=== PATIENT | male | born 1965 | race Caucasian/White ===

== ENCOUNTER → 2016-09-13 | Outpatient (CLI) | payer OTHER ==
[~2016-09-13] MED LIST: ALBUAER2 PO; ANT25 PO; ASPI81TA28 PO; BENZ1CAP90 PO; FLV1 PO; FOLI1TAB7 PO; OMEG10007 PO; OMEP20CA9 PO; SIMV-151 PO; SNG10 PO; VERA120T65 PO; VNTHFA/IN INH; [UNRECOGNIZED DRUG - CODE] PO
[2016-09-13 09:20] LABS: CHOLESTEROL/HDL RATIO 3.4
[2016-09-13 11:40] LABS: ALT/SGPT 57 U/L (12-78); AST/SGOT 35 U/L (15-37); BLOOD UREA NITROGEN 9 mg/dl (7-18); BUN/CREATININE RATIO 8.5 (10-20); CALCIUM 9.1 mg/dl (8.5-10.1); CARBON DIOXIDE 28 mmol/L (21-32); CHLORIDE 109 mmol/L (98-107); GLUCOSE 96 mg/dl (70-99); POTASSIUM 4.2 mmol/L (3.5-5.1); SODIUM 143 mmol/L (136-145)
[2016-09-13 11:42] LABS: ALKALINE PHOSPHATASE 117 U/L (45-117)
== END | disposition home or self-care (01) ==
LOC: C.LAB 07:37
PROVIDERS: ATTEND Nurse Practitioner Family
DX: E78.5 Hyperlipidemia, unspecified (principal); J45.909 Unspecified asthma, uncomplicated; K76.0 Fatty (change of) liver, not elsewhere classified; K21.9 Gastro-esophageal reflux disease without esophagitis; I10 Essential (primary) hypertension

== ENCOUNTER 2016-10-07 09:48 | Emergency (ER) | payer OTHER ==
[~2016-10-07] VITALS: Ht 180.3 cm; Wt 94.5 kg
[~2016-10-07 09:48] MED LIST changes: -ASPI81TA28 PO; -BENZ1CAP90 PO; -FOLI1TAB7 PO; -OMEG10007 PO; -VNTHFA/IN INH
[2016-10-07 09:49] VITALS: TEMP 36.4; Ht 180.3 cm; Wt 94.5 kg
[2016-10-07 10:26] VITALS: O2SAT 96
--- NOTE | 2016-10-07 10:33 | DIAGNOSTIC IMAGING REPORT ---
CHEST ONE VIEW PORTABLE HISTORY: short of breath COMPARISON: Chest 07/07/2014. FINDINGS: No focal lung consolidations to suggest pneumonia. Mild peripheral interstitial thickening within the right mid to lower lung zone remains unchanged. The heart is stable in size. No pleural effusions. No pneumothorax. Suspect mild emphysema. IMPRESSION: No significant change compared to the prior study. No acute process. No new focal lung consolidations to suggest pneumonia. Electronically signed by: Apolinar Saucedo M.D. 10/07/2016 10:31 AM Dictated Date/Time: 10/07/2016 10:29 AM
--- NOTE | 2016-10-07 10:40 | EMERGENCY ROOM VISIT NOTE ---
History First contact with patient: 10:06 Chief Complaint: SHORTNESS OF BREATH Stated Complaint: HURTS TO BREATHE, RT SIDE OF CHEST PAIN Nursing Triage Summary: Noticed right-sided sharp non-radiating chest pain Timmy with deep breath and cough. Non-productive cough. Exertional/cough dyspnea but otherwise no dyspnea. History of Present Illness The patient is a 51 year old male who presents to the Emergency Room with complaints of right sided chest pain, cough, and SOB with coughing and exertion for the past 3 days. Pain increased with taking a deep breath. Shortness of breath with exertion and coughing. Recently ill with URI symptoms prior to the pain starting. Hx of pneumonia 3 years ago, feels similar. No fevers, chills, vomiting, abdominal pain, hemoptysis, leg pain or swelling, rashes, urinary symptoms. No trauma to the area. No history of blood clots. Review of Systems GENERAL: Denies fevers, chills, malaise, fatigue, unintentional weight changes. HEENT: Denies dizziness, visual problems, hearing loss, tinnitus. Denies difficulty swallowing or oral lesions. Denies sore throat. PULMONARY: + Cough, shortness of breath. Denies sputum production or hemoptysis. CARDIOVASCULAR: + Chest pain. Denies palpitations, dyspnea on exertion, orthopnea or peripheral edema. GASTROINTESTINAL: Denies diarrhea, constipation, nausea, vomiting, or abdominal pain. GENITOURINARY: Denies dysuria, frequency, urgency or nocturia. NEUROLOGIC: Denies history of epilepsy, CVA, TIA or chronic headaches. MUSCULOSKELETAL: Denies history of joint tenderness/swelling. SKIN: Denies rashes or lesions. PSYCHIATRIC: Denies history of depression or mental illness. ENDOCRINE: Denies history of diabetes. Past Medical/Surgical History Medical Problems: (1) Gastroesophageal reflux disease (2) Tobacco user Family History Cancer Heart disease Hypertension Lung disease Social History Smoking Status: Former Smoker Alcohol Use: none Drug Use: none Marital Status: Housing Status: lives with significant other Occupation Status: employed Current/Historical Medications Scheduled Benzonatate (Tessalon Perles), 200 MG PO TID Folic Acid (Folvite), 1 TAB PO DAILY Montelukast Sod (Montelukast Sodium), 10 MG PO DAILY@1700 Omeprazole (Prilosec), 20 MG PO DAILY@1900 Simvastatin (Simvastatin), 20 MG PO QAM Verapamil HCl (Verapamil HCl ER), 120 MG PO QAM Scheduled PRN Albuterol Hfa (Ventolin Hfa), 2 PUFFS INH QID PRN for SOB/Wheezing Meclizine HCl (Meclizine HCl), 1 TAB PO Q8 PRN for Dizziness or Vertigo Allergies Coded Allergies: No Known Allergies (Unverified , 12/03/10) Physical Exam Vital Signs Date Time Temp Pulse Resp B/P Pulse Ox O2 Delivery O2 Flow Rate FiO2 10/07/16 13:00 61 139/90 94 10/07/16 12:31 147/96 10/07/16 12:18 53 95 10/07/16 12:01 151/82 10/07/16 11:48 48 94 10/07/16 11:32 138/75 10/07/16 11:18 50 16 92 10/07/16 11:01 162/105 10/07/16 10:48 58 20 95 10/07/16 10:31 150/100 10/07/16 10:26 97 Room Air 10/07/16 10:26 96 Room Air 10/07/16 10:18 67 17 92 10/07/16 10:02 141/86 10/07/16 10:00 63 10/07/16 09:57 96 Room Air 10/07/16 09:55 168/92 10/07/16 09:49 36.4 66 18 150/101 97 Room Air Physical Exam CONSTITUTIONAL: No acute distress. Well appearing and well nourished. Alert and oriented X 4 with normal affect. HEENT: Normocephalic, atraumatic. Pupils equal, round and reactive to light, EOMI. TMs normal. Pharynx normal. Moist mucous membranes. NECK: Supple, full active range of motion without discomfort. RESPIRATORY: Clear to auscultation bilaterally with no wheezing, crackles, rhonchi or stridor. Equal expansion bilaterally. CARDIOVASCULAR: Regular rate and rhythm with no murmurs, rubs or gallops. Normal peripheral perfusion. No edema. No chest wall tenderness to palpation. GASTROINTESTINAL: Soft, nontender, nondistended. Bowel sounds present in all quadrants. MUSCULOSKELETAL: Full range of motion of all joints without discomfort. No posterior calf tenderness, erythema, swelling. INTEGUMENTARY: No rash or other significant dermatologic conditions noted. NEUROLOGIC: Cranial nerves II-XII grossly intact. No focal neurologic deficits noted. Medical Decision & Procedures ER Provider Diagnostic Interpretation: CHEST ONE VIEW PORTABLE HISTORY: short of breath COMPARISON: Chest 07/07/2014. FINDINGS: No focal lung consolidations to suggest pneumonia. Mild peripheral interstitial thickening within the right mid to lower lung zone remains unchanged. The heart is stable in size. No pleural effusions. No pneumothorax. Suspect mild emphysema. IMPRESSION: No significant change compared to the prior study. No acute process. No new focal lung consolidations to suggest pneumonia. Laboratory Results 10/07/16 10:15 Red Blood Count 4.89, Mean Corpuscular Volume 93.3, Mean Corpuscular Hemoglobin 31.9, Mean Corpuscular Hemoglobin Concent 34.2, Mean Platelet Volume 10.2, Neutrophils (%) (Auto) 58.4, Lymphocytes (%) (Auto) 30.6, Monocytes (%) (Auto) 8.4, Eosinophils (%) (Auto) 2.1, Basophils (%) (Auto) 0.2, Neutrophils # (Auto) 5.02, Lymphocytes # (Auto) 2.63, Monocytes # (Auto) 0.72, Eosinophils # (Auto) 0.18, Basophils # (Auto) 0.02 10/07/16 10:15 Test 10/07/16 10:15 White Blood Count 8.60 K/uL (4.8-10.8) Red Blood Count 4.89 M/uL (4.7-6.1) Hemoglobin 15.6 g/dL (14.0-18.0) Hematocrit 45.6 % (42-52) Mean Corpuscular Volume 93.3 fL (80-100) Mean Corpuscular Hemoglobin 31.9 pg (25-34) Mean Corpuscular Hemoglobin Concent 34.2 g/dl (32-36) Platelet Count 235 K/uL (130-400) Mean Platelet Volume 10.2 fL (7.4-10.4) Neutrophils (%) (Auto) 58.4 % Lymphocytes (%) (Auto) 30.6 % Monocytes (%) (Auto) 8.4 % Eosinophils (%) (Auto) 2.1 % Basophils (%) (Auto) 0.2 % Neutrophils # (Auto) 5.02 K/uL (1.4-6.5) Lymphocytes # (Auto) 2.63 K/uL (1.2-3.4) Monocytes # (Auto) 0.72 K/uL (0.11-0.59) Eosinophils # (Auto) 0.18 K/uL (0-0.5) Basophils # (Auto) 0.02 K/uL (0-0.2) RDW Standard Deviation 43.9 fL (36.4-46.3) RDW Coefficient of Variation 13.0 % (11.5-14.5) Immature Granulocyte % (Auto) 0.3 % Immature Granulocyte # (Auto) 0.03 K/uL (0.00-0.02) D-Dimer 290 ug/L FEU (0-500) Anion Gap 8.0 mmol/L (3-11) Est Creatinine Clear Calc Drug Dose 103.6 ml/min Estimated GFR () 101.8 Estimated GFR (Non- 87.8 BUN/Creatinine Ratio 11.7 (10-20) Calcium Level 9.1 mg/dl (8.5-10.1) Total Bilirubin 0.5 mg/dl (0.2-1) Aspartate Amino Transf (AST/SGOT) 33 U/L (15-37) Alanine Aminotransferase (ALT/SGPT) 51 U/L (12-78) Alkaline Phosphatase 103 U/L (45-117) Troponin I < 0.015 ng/ml (0-0.045) Total Protein 7.4 gm/dl (6.4-8.2) Albumin 3.4 gm/dl (3.4-5.0) Globulin 4.0 gm/dl (2.5-4.0) Albumin/Globulin Ratio 0.9 (0.9-2) Lipase 146 U/L (73-393) Medications Administered Medications (Trade) Dose Ordered Sig/Nolberto Route Start Time Stop Time Status Last Admin Dose Admin Ketorolac Tromethamine (Toradol Inj) 15 mg NOW STAT IV 10/07/16 11:13 10/07/16 11:15 DC 10/07/16 11:26 15 MG ECG Indication: chest pain, SOB/dyspnea Rate (beats per minute): 55 Rhythm: sinus bradycardia Findings: no acute ischemic change, no ectopy Change: no significant change (11/11/2014) Medical Decision CC: Patient presenting with complaint of right-sided chest pain, cough, shortness of breath Interpretation of Labs: No leukocytosis, no anemia, normal electrolytes, normal renal function. Differential Diagnosis: Includes, but not limited to Pneumonia, bronchitis, asthma, COPD, congestive heart failure, pulmonary embolism, pleurisy, pneumothorax, acute coronary syndrome, costochondritis, musculoskeletal pain, viral URI. Summary: Patient was evaluated at bedside, history of physical exam performed. He is alert and in no acute distress. Vital signs stable. Lung sounds are clear with no wheezes or rhonchi. Pain is not reproducible with palpation. Orders were placed at bedside for labs, chest x-ray, EKG. Patient discussed with Dr. Bryan, who agrees with my assessment and plan. Chest x-ray reviewed, no pneumonia or other acute abnormalities. Labs reviewed, unremarkable as described above. ACS and PE were considered in the differential, as these are less likely given normal EKG, negative troponin, and negative d-dimer. Patient's symptoms more consistent with musculoskeletal chest pain secondary to URI with coughing. Patient states possible history of COPD, but he is unsure and is not currently on any management medications for this. He does state he has albuterol inhaler at home as needed, I encouraged him to use this to help manage his coughing. Patient's chest pain much improved after IV Toradol. Patient instructed on further management of his pain at home. Rx for Tessalon Perles provided for the patient. He was instructed to follow closely with his PCP, as well as strict return precautions, he verbalized understanding. Patient reassessed multiple times throughout ED stay, with improvement in pain, vitals remaining stable, and he was discharged home in stable condition. Impression Primary Impression: URI with cough and congestion Additional Impression: Right-sided chest wall pain Departure Information Dispostion Home / Self-Care Condition GOOD Prescriptions Benzonatate (Tessalon Perles) 200 Mg Cap 200 MG PO TID for 7 Days, #21 CAP Prov: Karen Valerio CRNP 10/07/16 Referrals Pete Lewis III, CRNP (PCP) Patient Instructions [facility] Additional Instructions Drink plenty of fluids to stay well hydrated. Tylenol or Ibuprofen as needed for pain. Apply warm compress to your right side for comfort. Use a pillow or small rolled up blanket to splint your right side with coughing. Tessalon pearles as needed for coughing. Use your albuterol inhaler 2 puffs every 4-6 hours and at night time before bed to help reduce coughing. Follow up with your PCP in the next few days for recheck. Please return to the ER for any worsening symptoms, including severe chest pain , increasing shortness of breath, coughing up blood, fever/chills, severe dizziness or passing out, or any other concerns. Problem Qualifiers
[2016-10-07 10:49] LABS: BASO % 0.2 %; BASO ABS # 0.02 K/uL (0-0.2); COMPLETE YES; EOS % 2.1 %; HEMATOCRIT 45.6 % (42-52); IG% 0.3 %; LYMPH % 30.6 %; LYMPH ABS # 2.63 K/uL (1.2-3.4); MEAN CELL VOLUME 93.3 fL (80-100); MEAN CORPUSCULAR HEMOGLOBIN 31.9 pg (25-34); MEAN CORPUSCULAR HGB CONC 34.2 g/dl (32-36); MEAN PLATELET VOLUME 10.2 fL (7.4-10.4); MONO % 8.4 %; NEUT % 58.4 %; PLATELET COUNT 235 K/uL (130-400); RED BLOOD COUNT 4.89 M/uL (4.7-6.1)
[2016-10-07 11:00] LABS: ALT/SGPT 51 U/L (12-78); BLOOD UREA NITROGEN 12 mg/dl (7-18); BUN/CREATININE RATIO 11.7 (10-20); CARBON DIOXIDE 26 mmol/L (21-32); CHLORIDE 109 mmol/L (98-107); CREATININE 0.99 mg/dl (0.60-1.40); GLUCOSE 98 mg/dl (70-99); POTASSIUM 3.5 mmol/L (3.5-5.1); SODIUM 143 mmol/L (136-145)
[2016-10-07 11:03] LABS: CALCIUM 9.1 mg/dl (8.5-10.1)
[2016-10-07] MEDS ORDERED: FOLI1TAB7 PO (11:03)
[2016-10-07] MEDS ORDERED: VNTHFA/IN INH (11:04)
[2016-10-07 11:06] LABS: ALB/GLOB RATIO 0.9 (0.9-2); ALKALINE PHOSPHATASE 103 U/L (45-117); AST/SGOT 33 U/L (15-37)
[2016-10-07] MEDS ORDERED: KETOROLAC TROMETHAMINE 30 MG/ML VIAL IV STA (11:13)
[2016-10-07] MEDS ORDERED: BENZ1CAP90 PO (12:30)
[2016-10-07 13:00] VITALS: BP 139/90; PULSE 61; O2SAT 94
== END 2016-10-07 13:01 | disposition home or self-care (01) ==
LOC: C.EDB 09:56
DX: J06.9 Acute upper respiratory infection, unspecified (principal); R09.89 Other specified symptoms and signs involving the circulatory and respiratory systems; R07.89 Other chest pain; K21.9 Gastro-esophageal reflux disease without esophagitis; Z80.9 Family history of malignant neoplasm, unspecified; Z82.49 Family history of ischemic heart disease and other diseases of the circulatory system; Z83.6 Family history of other diseases of the respiratory system; Z87.891 Personal history of nicotine dependence; Z79.899 Other long term (current) drug therapy

== ENCOUNTER → 2016-11-14 | Outpatient (CLI) | payer OTHER ==
[~2016-11-14] MED LIST changes: -ALBUAER2 PO; -FLV1 PO; +FOLI1TAB7 PO; +VNTHFA/IN INH; -[UNRECOGNIZED DRUG - CODE] PO
[2016-11-14 09:32] LABS: BASO % 0.4 %; BASO ABS # 0.03 K/uL (0-0.2); COMPLETE YES; EOS % 2.5 %; HEMATOCRIT 50.7 % (42-52); IG% 0.1 %; LYMPH % 34.8 %; LYMPH ABS # 2.53 K/uL (1.2-3.4); MEAN CELL VOLUME 93.9 fL (80-100); MEAN CORPUSCULAR HEMOGLOBIN 31.9 pg (25-34); MEAN CORPUSCULAR HGB CONC 33.9 g/dl (32-36); MEAN PLATELET VOLUME 11.5 fL (7.4-10.4); MONO % 8.8 %; NEUT % 53.4 %; PLATELET COUNT 199 K/uL (130-400); WHITE BLOOD COUNT 7.28 K/uL (4.8-10.8)
[2016-11-14 10:01] LABS: ALT/SGPT 65 U/L (12-78); AST/SGOT 35 U/L (15-37); BLOOD UREA NITROGEN 8 mg/dl (7-18); CALCIUM 9.4 mg/dl (8.5-10.1); CARBON DIOXIDE 23 mmol/L (21-32); CHLORIDE 109 mmol/L (98-107); CHOLESTEROL 146 mg/dl (0-200); GLUCOSE 103 mg/dl (70-99); MAGNESIUM 2.1 mg/dl (1.8-2.4); POTASSIUM 4.1 mmol/L (3.5-5.1); SODIUM 141 mmol/L (136-145); TRIGLYCERIDES 170 mg/dl (0-150); VERY LOW DENSITY LIPOPROT CALC 34 mg/dl
[2016-11-14 10:05] LABS: ALB/GLOB RATIO 0.9 (0.9-2); ALKALINE PHOSPHATASE 111 U/L (45-117); CHOLESTEROL/HDL RATIO 4.1; HDL CHOLESTEROL 36 mg/dl; LDL CHOLESTEROL CALCULATED 76 mg/dl
== END | disposition home or self-care (01) ==
LOC: C.LAB 08:31
PROVIDERS: ATTEND Nurse Practitioner Family
DX: E78.5 Hyperlipidemia, unspecified (principal); J45.909 Unspecified asthma, uncomplicated; K76.0 Fatty (change of) liver, not elsewhere classified; K21.9 Gastro-esophageal reflux disease without esophagitis; I10 Essential (primary) hypertension

== ENCOUNTER 2017-02-24 12:54 | Emergency (ER) | payer OTHER ==
[~2017-02-24] VITALS: Ht 172.7 cm; Wt 94.5 kg
[2017-02-24 12:59] VITALS: TEMP 36.5; Ht 172.7 cm; Wt 94.5 kg
[2017-02-24] MEDS ORDERED: ASPI81TA28 PO (13:07)
[2017-02-24] MEDS ORDERED: OMEG10007 PO (13:07)
[2017-02-24] MEDS ORDERED: HYDROCODONE/ACETAMOPHEN 5/325MG TAB PO STA (13:20)
--- NOTE | 2017-02-24 14:07 | DIAGNOSTIC IMAGING REPORT ---
R RIBS UNILATERAL WITH PA CHEST HISTORY: 52 years-old Male fall/right posterior rib pain acute right rib pain status post fall. COMPARISON: Chest radiograph 10/07/2016 TECHNIQUE: Frontal view of the chest with 6 views of the right ribs FINDINGS: The cardiomediastinal and hilar silhouettes are within normal limits. There is mild biapical pleural-parenchymal scarring without pneumothorax, pleural effusion or focal airspace consolidation. Mild peripheral interstitial coarsening appears unchanged from the preceding study and likely reflects chronic changes. Multilevel bridging osteophytosis of the spine. Degenerative changes are seen throughout the right shoulder. The imaged right ribs appear intact without acute fracture identified. IMPRESSION: 1. No acute cardiopulmonary process. No pneumothorax. 2. No rib fracture identified. The above report was generated using voice recognition software. It may contain grammatical, syntax or spelling errors. Electronically signed by: Temo Ramsey M.D. 02/24/2017 2:06 PM Dictated Date/Time: 02/24/2017 2:04 PM
--- NOTE | 2017-02-24 14:19 | EMERGENCY ROOM VISIT NOTE ---
ED Visit Note First contact with patient: 13:14 CHIEF COMPLAINT: Right-sided rib injury HISTORY OF PRESENT ILLNESS: This 52-year-old male presents the ER with chief complaint of right posterior rib injury. The patient states that at 11:30 AM he went to stand on a small bench and it collapsed and he fell backwards striking his mid to upper back on the edge of a piece of wood. He did not hit his head. There was no loss of consciousness. The patient denies any chest pain. He denies any neck or lower back pain. The patient states that he has pain when he tries to take in a deep breath or if he moves. He denies any shortness of breath. He also states that he scraped his right lower leg but is able to walk and he has only minimal pain. He states he took 2 Advil prior to coming to the emergency room. REVIEW OF SYSTEMS: 10 system review was performed and was negative unless stated otherwise history of present illness. PMH: The patient is healthy; heart disease, hypertension SOCIAL HISTORY: Patient lives with his . The patient denies any tobacco or alcohol use. PHYSICAL EXAM: Vital Signs: Were reviewed Reviewed Nurse's notes. GENERAL: 52- year-old white male appears in no acute distress. MENTAL Status: Alert and oriented 3. LUNGS: Clear to auscultation and breath sounds equal, no wheezes, rales, or rhonchi. HEART: Heart sounds are regular without murmurs, ectopy, gallop, or rub. RIGHT RIBS: No gross bony deformity noted. There is a red will noted extending from the right scapula down to the thoracic lumbar junction midline. The area is only mildly tender to palpation over this area. Anterior chest wall is nontender. THORACIC SPINE: Patient is nontender to palpation over the spinous processes. RIGHT SHOULDER: No gross bony deformity noted. Full range of motion without pain. RIGHT LOWER LEG: Superficial abrasion noted over the mid anterior aspect without any deep lacerations, ecchymosis noted. EMERGENCY DEPARTMENT COURSE: The patient was evaluated. The patient was given [place] 5/325 mg 2 tablets by mouth for pain. X-ray of the right ribs was ordered and interpreted by the radiologist and myself. DIAGNOSTICS:R RIBS UNILATERAL WITH PA CHEST HISTORY: 52 years-old Male fall/right posterior rib pain acute right rib pain status post fall. COMPARISON: Chest radiograph 10/07/2016 TECHNIQUE: Frontal view of the chest with 6 views of the right ribs FINDINGS: The cardiomediastinal and hilar silhouettes are within normal limits. There is mild biapical pleural-parenchymal scarring without pneumothorax, pleural effusion or focal airspace consolidation. Mild peripheral interstitial coarsening appears unchanged from the preceding study and likely reflects chronic changes. Multilevel bridging osteophytosis of the spine. Degenerative changes are seen throughout the right shoulder. The imaged right ribs appear intact without acute fracture identified. IMPRESSION: 1. No acute cardiopulmonary process. No pneumothorax. 2. No rib fracture identified. The above report was generated using voice recognition software. It may contain grammatical, syntax or spelling errors. Electronically signed by: Temo Ramsey M.D. 02/24/2017 2:06 PM The patient was informed of the findings. The patient was offered a prescription for narcotics. He declined. The patient was discharged home in stable condition with his driving. DIAGNOSIS: Right rib contusion TREATMENT and DISCHARGE INSTRUCTIONS: Avoid any heavy lifting until symptoms have improved. Ibuprofen 600 mg every 6 hours with food for pain. If symptoms should worsen follow-up with your family doctor for reevaluation. Problem List Medical Problems: (1) Gastroesophageal reflux disease Status: Chronic (2) Tobacco user Status: Chronic Current/Historical Medications Scheduled Aspirin (Aspirin Ec), 81 MG PO DAILY Fish Oil ([place]-3), 1 CAP PO DAILY Folic Acid (Folvite), 1 TAB PO DAILY Montelukast Sod (Montelukast Sodium), 10 MG PO DAILY@1700 Omeprazole (Prilosec), 20 MG PO DAILY@1900 Simvastatin (Simvastatin), 20 MG PO QAM Verapamil HCl (Verapamil HCl ER), 120 MG PO QAM Scheduled PRN Albuterol Hfa (Ventolin Hfa), 2 PUFFS INH QID PRN for SOB/Wheezing Meclizine HCl (Meclizine HCl), 1 TAB PO Q8 PRN for Dizziness or Vertigo Allergies Coded Allergies: No Known Allergies (Unverified , 02/24/17) Vital Signs Date Time Temp Pulse Resp B/P (MAP) Pulse Ox O2 Delivery O2 Flow Rate FiO2 02/24/17 12:59 36.5 77 16 153/80 94 Room Air Medications Administered Medications (Trade) Dose Ordered Sig/Nolberto Route Start Time Stop Time Status Last Admin Dose Admin Acetaminophen/ Hydrocodone Bitart ([place] 5/325 Tab) 2 tab NOW STAT PO 02/24/17 13:20 02/24/17 13:22 DC 02/24/17 13:27 2 TAB Departure Information Referrals Pete Lewis III, CRNP (PCP) Patient Instructions [facility] [place]
[2017-02-24 14:26] VITALS: BP 124/98; PULSE 75; O2SAT 94
== END 2017-02-24 14:27 | disposition home or self-care (01) ==
LOC: C.EDB 12:56 → C.EDD 14:27
DX: S20.211A Contusion of right front wall of thorax, initial encounter (principal); W01.198A Fall on same level from slipping, tripping and stumbling with subsequent striking against other object, initial encounter; I10 Essential (primary) hypertension; K21.9 Gastro-esophageal reflux disease without esophagitis; Z72.0 Tobacco use; Z79.82 Long term (current) use of aspirin; Z79.899 Other long term (current) drug therapy

== ENCOUNTER → 2017-04-16 | Outpatient (CLI) | payer OTHER ==
[~2017-04-16] MED LIST changes: +ASPI81TA28 PO; +OMEG10007 PO
== END | disposition home or self-care (01) ==
LOC: C.LABSPEC 13:04
PROVIDERS: ATTEND Nurse Practitioner Family
DX: L91.8 Other hypertrophic disorders of the skin (principal)

== ENCOUNTER 2017-09-04 11:18 | Emergency (ER) | payer OTHER ==
[~2017-09-04] VITALS: Ht 175.3 cm; Wt 95.8 kg
[2017-09-04 11:22] VITALS: BP 135/93; PULSE 74; O2SAT 93; Ht 175.3 cm; Wt 95.8 kg
[2017-09-04] MEDS ORDERED: HYDROCODONE/ACETAMIN 5/325MG TAB PO STA (11:38)
--- NOTE | 2017-09-04 12:10 | DIAGNOSTIC IMAGING REPORT ---
R WRIST MIN 3 VIEWS ROUTINE CLINICAL HISTORY: fall/ wrist injury COMPARISON: None FINDINGS: Note is made of an acute comminuted, displaced distal right radial fracture with intra-articular extension and dorsal tilt of the distal component. There is no acute fracture of the distal right ulna. Carpal bones are intact. IMPRESSION: Acute moderately comminuted, moderately displaced distal right radial fracture with intra-articular extension and dorsal tilt of the distal component consistent with a Colles' fracture. Electronically signed by: Lisandro Kwan M.D. 09/04/2017 12:08 PM Dictated Date/Time: 09/04/2017 12:07 PM
--- NOTE | 2017-09-04 12:11 | DIAGNOSTIC IMAGING REPORT ---
R FOREARM 2 VIEWS ROUTINE HISTORY: 52 years-old Male fall/ forear injury acute right forearm pain status post fall COMPARISON: Right wrist radiographs of same day TECHNIQUE: 2 views of the right forearm FINDINGS: Acute comminuted intra-articular fracture of the distal radius with slight impaction and displacement. The ulna and proximal radius appear intact. Mild to moderate marginal spurring about the distal humerus at both the medial and lateral epicondyles. No opaque foreign body. Mild soft tissue swelling about the wrist. IMPRESSION: 1. Acute comminuted intra-articular fracture of the distal radius with slight impaction and displacement, better evaluated on dedicated wrist radiographs of same day. 2. The ulna and proximal radius appear intact. The above report was generated using voice recognition software. It may contain grammatical, syntax or spelling errors. Electronically signed by: Temo Ramsey M.D. 09/04/2017 12:09 PM Dictated Date/Time: 09/04/2017 12:08 PM
--- NOTE | 2017-09-04 12:50 | EMERGENCY ROOM VISIT NOTE ---
History First contact with patient: 11:31 Chief Complaint: WRIST PAIN Stated Complaint: FALL,RT WRIST PAIN History of Present Illness The patient is a 52 year old male who presents to the Emergency Room with complaints of right wrist and forearm pain after a fall. The patient states approximately 45 minutes ago he fell and injured his right wrist and forearm. The patient does not know exactly how he fell. The patient states when he went to get up from the ground he had severe pain and thinks he passed out for a second and hit the left ear on "something". He states he thinks his glasses cut his ear since they were broken. The patient denies any headache, visual changes or dizziness. The patient is not on any blood thinners. The patient denies any other pain. The patient denies any numbness and tingling in his fingers. He states the pain is around the right wrist and radiates up to the elbow. The patient denies any shoulder or neck pain. He has not taken anything for pain. The patient has not seen an orthopedic in the past. The patient states he last ate at 7:30 AM. Review of Systems 10 system review was performed and was negative unless stated otherwise history of present illness. Past Medical/Surgical History Medical Problems: (1) Gastroesophageal reflux disease (2) Tobacco user CAD, hypertension, [place] Family History Cancer Heart disease Hypertension Lung disease Social History Smoking Status: Former Smoker Alcohol Use: none Drug Use: none Marital Status: Housing Status: lives with significant other Occupation Status: employed Current/Historical Medications Scheduled Aspirin (Aspirin Ec), 81 MG PO DAILY Fish Oil ([place]-3), 1 CAP PO DAILY Folic Acid (Folvite), 1 TAB PO DAILY Montelukast Sod (Montelukast Sodium), 10 MG PO DAILY@1700 Omeprazole (Prilosec), 20 MG PO DAILY@1900 Simvastatin (Simvastatin), 20 MG PO QAM Verapamil HCl (Verapamil HCl ER), 120 MG PO QAM Physical Exam Vital Signs Date Time Temp Pulse Resp B/P (MAP) Pulse Ox O2 Delivery O2 Flow Rate FiO2 09/04/17 11:22 74 20 135/93 93 Room Air Physical Exam GENERAL: 52-year-old white male appears in no acute distress. MENTAL Status: Alert and oriented 3. Head: Atraumatic, nontender to palpation throughout. EYES: PERRLA. EOMs intact. EARS: Canals clear. TMs without fluid level noted. There is a superficial abrasion noted on the article of the left ear. The wound looks clean. No active bleeding. NECK: Supple, no lymphadenopathy noted. No carotid bruits noted. LUNGS: Clear auscultation without wheezes rales or rhonchi. CARDIAC: Regular rate and rhythm without murmur. Pulses is full and equal throughout. NEURO:Cranial nerves two through 12 intact. Cerebellar function intact with [id number]. Fine motor intact with alternating finger motions. RIGHT FOREARM: No gross bony deformity noted patient is tender to palpation over both the proximal and the distal aspect of the forearm. RIGHT WRIST: No gross bony deformity noted. There is edema noted over the entire wrist joint. Limited range of motion secondary to pain. The patient is able to move his fingers without difficulty. Radial pulses 2+. Sensation is intact. Medical Decision & Procedures ER Provider Diagnostic Interpretation: R WRIST MIN 3 VIEWS ROUTINE CLINICAL HISTORY: fall/ wrist injury COMPARISON: None FINDINGS: Note is made of an acute comminuted, displaced distal right radial fracture with intra-articular extension and dorsal tilt of the distal component. There is no acute fracture of the distal right ulna. Carpal bones are intact. IMPRESSION: Acute moderately comminuted, moderately displaced distal right radial fracture with intra-articular extension and dorsal tilt of the distal component consistent with a Colles' fracture. Electronically signed by: Lisandro Kwan M.D. 09/04/2017 12:08 PM R FOREARM 2 VIEWS ROUTINE HISTORY: 52 years-old Male fall/ forear injury acute right forearm pain status post fall COMPARISON: Right wrist radiographs of same day TECHNIQUE: 2 views of the right forearm FINDINGS: Acute comminuted intra-articular fracture of the distal radius with slight impaction and displacement. The ulna and proximal radius appear intact. Mild to moderate marginal spurring about the distal humerus at both the medial and lateral epicondyles. No opaque foreign body. Mild soft tissue swelling about the wrist. IMPRESSION: 1. Acute comminuted intra-articular fracture of the distal radius with slight impaction and displacement, better evaluated on dedicated wrist radiographs of same day. 2. The ulna and proximal radius appear intact. The above report was generated using voice recognition software. It may contain grammatical, syntax or spelling errors. Electronically signed by: Temo Ramsey M.D. Medications Administered Medications (Trade) Dose Ordered Sig/Nolberto Route Start Time Stop Time Status Last Admin Dose Admin Acetaminophen/ Hydrocodone Bitart ([place] 5/325 Tab) 2 tab NOW STAT PO 09/04/17 11:38 09/04/17 11:39 DC 09/04/17 11:44 2 TAB ED Course Patient was evaluated. The patient's EMR medication list were reviewed. The patient was given [place] 5/325 mg 2 tablets p.o. for pain. X-ray of the right forearm and right wrist were ordered interpreted by the radiologist and myself as above with a intra-articular comminuted fracture of the distal radius. [facility] was consulted. They will see him in the office immediately. The patient was placed in Ortho-Glass volar splint and sling and discharged to go directly to orthopedics. The patient was happy with treatment plan. The patient was discharged with a family member driving. Medical Decision Differential diagnosis include fracture versus contusion versus sprains [place] Drug Monitoring Program Search Results: patient reviewed within database Medication Reconcilliation Current Medication List: was personally reviewed by me Blood Pressure Screening Patient's blood pressure: Elevated blood pressure Blood pressure disposition: Elevated BP felt to be situational Impression Primary Impression: Left radial fracture Departure Information Dispostion Home / Self-Care Condition GOOD Referrals Pete Lewis III, CRNP (PCP) [facility] Forms HOME CARE DOCUMENTATION FORM, IMPORTANT VISIT INFORMATION, WORK / SCHOOL INSTRUCTIONS Patient Instructions My [employer] Additional Instructions Go directly to [facility] for further evaluation and treatment. Keep arm in sling and splint until evaluated by orthopedics. Problem Qualifiers Primary Impression: Left radial fracture Encounter type: initial encounter Radius location: distal Fracture type: closed Fracture morphology: other intra-articular Qualified Codes: S52.572A - Other intraarticular fracture of lower end of left radius, initial encounter for closed fracture
[2017-09-04] MEDS ORDERED: MoRPHine SULFATE 10 MG/ML CARP/VIAL IM STA (12:57)
== END 2017-09-04 13:22 | disposition home or self-care (01) ==
LOC: C.EDB 11:19 → C.EDD 13:22
DX: S52.572A Other intraarticular fracture of lower end of left radius, initial encounter for closed fracture (principal); W19.XXXA Unspecified fall, initial encounter; K21.9 Gastro-esophageal reflux disease without esophagitis; I25.10 Atherosclerotic heart disease of native coronary artery without angina pectoris; I10 Essential (primary) hypertension; I25.2 Old myocardial infarction; Z79.82 Long term (current) use of aspirin; Z79.899 Other long term (current) drug therapy; Z87.891 Personal history of nicotine dependence

== ENCOUNTER → 2017-09-04 | Outpatient (CLI) | payer OTHER ==
[~2017-09-04] MED LIST changes: -FOLI1TAB7 PO; +FOLI1TAB8 PO
== END | disposition home or self-care (01) ==
LOC: C.CPL 15:39
DX: S52.531A Colles' fracture of right radius, initial encounter for closed fracture (principal); X58.XXXA Exposure to other specified factors, initial encounter

== ENCOUNTER → 2017-09-18 | Outpatient (CLI) | payer OTHER ==
[~2017-09-18] MED LIST changes: -ANT25 PO; -VNTHFA/IN INH
[2017-09-18 09:29] LABS: BASO % 0.2 %; BASO ABS # 0.02 K/uL (0-0.2); EOS % 1.3 %; EOS ABS # 0.13 K/uL (0-0.5); HEMATOCRIT 49.2 % (42-52); HEMOGLOBIN 17.1 g/dL (14.0-18.0); IG# 0.02 K/uL (0.00-0.02); LYMPH % 28.6 %; LYMPH ABS # 2.76 K/uL (1.2-3.4); MEAN CELL VOLUME 93.7 fL (80-100); MEAN CORPUSCULAR HEMOGLOBIN 32.6 pg (25-34); MEAN CORPUSCULAR HGB CONC 34.8 g/dl (32-36); MEAN PLATELET VOLUME 11.2 fL (7.4-10.4); MONO % 8.4 %; MONO ABS # 0.81 K/uL (0.11-0.59); NEUT % 61.3 %; NEUT ABS # 5.92 K/uL (1.4-6.5); PLATELET COUNT 219 K/uL (130-400); RED CELL DISTRIBUTION WIDTH CV 13.1 % (11.5-14.5); RED CELL DISTRIBUTION WIDTH SD 44.9 fL (36.4-46.3); WHITE BLOOD COUNT 9.66 K/uL (4.8-10.8)
[2017-09-18 10:27] LABS: ALBUMIN 3.8 gm/dl (3.4-5.0); ALT/SGPT 61 U/L (12-78); AST/SGOT 38 U/L (15-37); BLOOD UREA NITROGEN 12 mg/dl (7-18); CALCIUM 9.4 mg/dl (8.5-10.1); CARBON DIOXIDE 28 mmol/L (21-32); CHOLESTEROL 124 mg/dl (0-200); CREATININE 1.02 mg/dl (0.60-1.40); GLUCOSE 99 mg/dl (70-99); POTASSIUM 4.1 mmol/L (3.5-5.1); SODIUM 141 mmol/L (136-145)
[2017-09-18 10:29] LABS: ALKALINE PHOSPHATASE 126 U/L (45-117); LDL CHOLESTEROL CALCULATED 60 mg/dl; TOTAL PROTEIN 8.1 gm/dl (6.4-8.2)
== END | disposition home or self-care (01) ==
LOC: C.LAB 08:51
PROVIDERS: ATTEND Nurse Practitioner Family
DX: E78.5 Hyperlipidemia, unspecified (principal); J45.909 Unspecified asthma, uncomplicated; K76.0 Fatty (change of) liver, not elsewhere classified; K21.9 Gastro-esophageal reflux disease without esophagitis; I10 Essential (primary) hypertension

== ENCOUNTER 2017-12-24 08:52 | Emergency (ER) | payer OTHER ==
[~2017-12-24] VITALS: Ht 175.3 cm; Wt 96.4 kg
[2017-12-24 09:05] VITALS: TEMP 36.4; Ht 175.3 cm; Wt 96.4 kg
[2017-12-24] MEDS ORDERED: TRIMETHOPRIM/POLYMYXIN B OPL STA (10:05)
--- NOTE | 2017-12-24 10:17 | EMERGENCY ROOM VISIT NOTE ---
ED Visit Note First contact with patient: 09:06 CHIEF COMPLAINT: Left eye redness and swelling HISTORY OF PRESENT ILLNESS: This 52-year-old female presents to ER with chief complaint of his left eye being red and swollen. The patient denies any known injury to the left eye but does work around Diabetol. The patient denies any eye pain or visual changes. He states it started yesterday morning. He states it is draining clear tears. The patient does not wear contacts. The patient denies any new environmental exposures. The patient states the eye is not itchy. REVIEW OF SYSTEMS: 6 system review was performed and was negative unless stated otherwise in history of present illness. PMH: The patient is healthy; GERD, CAD, hypertension, [place] SOCIAL HISTORY: Patient is a former smoker. The patient denies any alcohol use. The patient lives with his spouse. PHYSICAL EXAM: Vital Signs: Were reviewed reviewed Nurse's notes. GENERAL: 52- year-old male appears in no acute distress. MENTAL Status: Alert and oriented 3. EYES: The pupils are round, equal, and react to light. EOMs are full. There is also erythema and edema of both upper and lower eyelid but he is able to open his eye without difficulty. There is discharge of clear tears from the injured eye which is injected. There is no foreign body visible under athe eyelid even after lid eversion. Slit lamp exam revealed: No foreign body was seen embedded in the cornea. The cornea was clear and no hyphema was seen. Fluorescein uptake was observed with not observed with ultraviolet light. EMERGENCY DEPARTMENT COURSE: The fluorescein was irrigated away and Polytrim eyedrop was placed into the left eye. DIAGNOSIS: Left eye irritation DISCHARGE INSTRUCTIONS AND TREATMENT: Try not to rub your left eye. Use Polytrim eyedrops as directed. If symptoms are not improving in 2-3 days recommend follow-up with ophthalmology. Problem List Medical Problems: (1) Gastroesophageal reflux disease Status: Chronic (2) Tobacco user Status: Chronic Current/Historical Medications Scheduled Aspirin (Aspirin Ec), 81 MG PO DAILY Fish Oil ([place]-3), 1 CAP PO BID Folic Acid (Folvite), 1 TAB PO BID Montelukast Sod (Montelukast Sodium), 10 MG PO DAILY@1700 Omeprazole (Prilosec), 20 MG PO DAILY@1900 Simvastatin (Simvastatin), 20 MG PO QAM Verapamil HCl (Verapamil HCl ER), 120 MG PO QAM Allergies Coded Allergies: No Known Allergies (Unverified , 12/24/17) Vital Signs Date Time Temp Pulse Resp B/P (MAP) Pulse Ox O2 Delivery O2 Flow Rate FiO2 12/24/17 09:05 36.4 73 16 145/107 95 Room Air Medications Administered Medications (Trade) Dose Ordered Sig/Nolberto Route Start Time Stop Time Status Last Admin Dose Admin Polymyxin/ Trimethoprim Sulfate (Polytrim Oph Soln) 1 drops NOW STAT OPL 12/24/17 10:05 12/24/17 10:07 DC 12/24/17 10:15 1 DROPS Departure Information Referrals Pete Lewis III, CRNP (PCP) Patient Instructions [facility]
[2017-12-24 10:40] VITALS: BP 135/92; PULSE 55; O2SAT 95
== END 2017-12-24 10:41 | disposition home or self-care (01) ==
LOC: C.EDB 08:54
DX: H57.8 Other specified disorders of eye and adnexa (principal); K21.9 Gastro-esophageal reflux disease without esophagitis; Z79.82 Long term (current) use of aspirin; Z87.891 Personal history of nicotine dependence

== ENCOUNTER 2024-05-26 23:30 | Observation (INO) ==
--- NOTE | 2024-05-26 23:53 | Emergency Department Note ---
Impression & Plan Chest pain, exertional, Chronic asthma, History of AR (myocardial infarction), Hypertension ED Provider Note NAME: HEVER DOMINGUEZ AGE: 59 SEX: M : 1965 ARRIVES VIA: Walk-In INFORMANT: Patient, ED PROVIDER(S): Blu Ordaz MD CHIEF COMPLAINT: Chest pain MEDICAL DECISION MAKING: Patient presents due to concern for chest pain that is exertional in nature but brief in duration as the patient is not active for prolonged periods. IV was established and blood work was obtained. No active chest pain at rest in the bed. Patient was ordered the rest of full dose aspirin to 43 mg the patient already taken baby aspirin today. Patient with a normal white count H&H and platelet count. Kidney function is unremarkable. BSG 132 with mild transaminitis with an AST of 61 and ALT of 71. Patient has had mild elevations of the AST and ALT in the past. Troponin negative. Unfortunately given the brief episodes do not believe the patient can be ruled out here in the department without active chest pain and negative EKG without active chest pain at the time he presented. I did speak the on-call hospitalist service after informing the patient of the findings and recommendations. Patient was admitted by Dr. Romero. Discussion w/ other healthcare providers: Dr. Romero inpatient medicine service Prior /Outside records reviewed: I reviewed part of a primary care visit from Pete Millard from April 12 patient with a known history of asthma type 2 diabetes dyslipidemia and hypertension also GERD. Differential diagnosis: Cardiac ischemia, aortic dissection, pulmonary embolism, pneumothorax, pneumonia, pericarditis, myocarditis, GERD, cholecystitis, pancreatitis, musculoskeletal, as well as other pathologies were considered. Diagnostics, as interpreted by me: ECG: Normal sinus rhythm, rate of 75, normal intervals, normal axis no ST elevations. Cardiac monitoring: An order was placed for continuous cardiac monitoring. The monitor shows a rate of 72 with sinus rhythm. Patient was placed on pulse oximetry Medical decision rules: Heart score Imaging studies: I informally interpreted the patient's chest x-ray does not show obvious pneumonia or pneumothorax with formal report to follow. HPI: Patient presents due to concern for chest pain which has been ongoing since yesterday. Patient states that it strictly exertional but does not occur any other time. No active chest pain at the bedside while at rest. Patient states that the pain is left-sided nonradiating and sharp. Patient states that he did have a heart attack years ago and had a cardiac catheterization about 14 years ago but did not require stent or bypass. The patient does not have a cheese wrapper. Patient denies any cough or fever. Reported prior history of asthma but currently denies any shortness of breath although this was reported in his triage note. Patient denies any falls or trauma. patient denies any history of DVT or PE. The patient denies any diaphoresis or nausea vomiting. Patient states that he does have some associated leg swelling which is chronic. PAST MEDICAL HISTORY: See Below PAST SURGICAL HISTORY: See Below SOCIAL HISTORY: See Below HOME MEDICATIONS: See Below ALLERGIES: See Below VITALS: See Below PHYSICAL EXAMINATION: GENERAL: NAD, non-toxic. Wearing glasses. EYE EXAM: Normal conjunctiva. PERRL, no anisocoria and EOM's grossly intact w/o pain. OROPHARYNX: Moist mucus membranes, grossly normal dentition. NECK: Trachea midline, no stridor. Supple, no nuchal rigidity, no adenopathy, non-tender. No signs of meningismus. FROM of the neck with good chin to chest and neck extension. LUNGS: Clear to auscultation. Normal chest wall mechanics. HEART: NSR, no MRG. ABDOMEN: Abdomen soft, non-tender, no masses, no rebound or guarding. BACK: No CVA TTP. SKIN: No rashes and no bruising. UPPER EXTREMITIES: Upper extremities are grossly normal. LOWER EXTREMITIES: Grossly normal, 1+ pretibial edema without calf pain or erythema. No asymmetry. NEURO EXAM: A&O x3, cranial nerves II-XII grossly intact, normal speech, moves all 4 extremities. Past Med/Surg History Problem List (Updated 05/27/24 @ 04:50 by Blu Ordaz MD) Hypertension (Acute) Chest pain, exertional (Acute) History of cardiac cath 2009 NO STENTS NEEDED-NO ISSUES SINCE History of AR (myocardial infarction) (Acute) Atypical chest pain Diabetes mellitus Chronic asthma (Chronic) Dyslipidemia (Chronic) Benign essential hypertension (Chronic) Chronic gastroesophageal reflux disease (Chronic 12/06/10) Medical History Diabetes mellitus type 2 in nonobese Former smoker GERD (gastroesophageal reflux disease) Asthma USES INHALERS INFREQUENTLY Myocardial Infarction 2009-CARDIAC CATH NO STENTS REQUIRED Hyperlipidemia TAKEN OFF MED Surgical History History of open reduction and internal fixation (ORIF) procedure RT WRIST X 2 Family History Mother Breast cancer Father Myocardial infarction Stroke Uncle Myocardial infarction Cerebral atherosclerosis Grandmother (Maternal) Liver cancer Denies family history of Ovarian cancer Prostate cancer Colorectal cancer Social History Smoking Status: Former smoker Second Hand Exposure: No; Do You Dip or Chew Tobacco: No (QUIT 12 YRS AGO); Hx Alcohol Use: No Hx Substance Use: No Preferred Language: Kinyarwanda Communication Ability: Effective Visual Impairment: No Limitations Hearing Ability: Normal Bead Stringer Required: No Beliefs That Will Affect Care: None marital status: Current Living Situation: Spouse current occupational status: employed current occupation: [employer] Feels Safe at Home: Yes Childhood Exposure to Second-Hand Smoke: Yes Dental Care, Regularly: No Physical Activity Frequency: 1-2 Times per Week Seatbelt Use: sometimes Sunscreen Use: No Assistive Devices: Denture - Upper, Denture - Lower and Glasses Allergies Allergies Allergy/AdvReac Type Severity Reaction Status Date / Time No Known Drug Allergies Allergy Verified 04/12/24 11:10 Home Meds Home Medications Medication Instructions Recorded Confirmed omega [id number]-fish oil 1,000 mg 1 cap PO DAILY 08/19/22 05/26/24 (120 mg-180 mg) capsule (Fish Oil) aspirin 81 mg tablet,delayed 81 mg PO DAILY 05/26/24 05/26/24 release atorvastatin 80 mg tablet 80 mg PO DAILY 05/26/24 05/26/24 ezetimibe 10 mg tablet 10 mg PO DAILY 05/26/24 05/26/24 lisinopril 2.5 mg tablet 2.5 mg PO DAILY 05/26/24 05/26/24 metoprolol tartrate 25 mg tablet 25 mg PO QAM 05/26/24 05/26/24 montelukast 10 mg tablet 10 mg PO QAM 05/26/24 05/26/24 travoprost 0.004 % eye drops 1 drp ophthalmic (eye) QPM 05/26/24 05/26/24 Previous Rx's Medication Instructions Recorded metformin 500 mg tablet 500 mg PO BID #180 tabs 05/12/23 omeprazole magnesium 20 mg 20 mg PO DAILY #90 tabs 10/20/23 tablet,delayed release (Prilosec OTC) albuterol sulfate 90 mcg/actuation See Rx Instructions inhalation 04/11/24 aerosol inhaler (Ventolin HFA) .COMPLEX PRN shortness of breath or wheezing #8.5 grams Results & Data (ED) Vital Signs Vital Signs - 24 hr 05/26/24 23:43 05/26/24 23:55 05/26/24 23:55 Temperature 36.3 C L Temperature Source Temporal Artery Scan Pulse Rate 83 Pulse Rate [Apical] 85 Respiratory Rate 18 19 Respiratory Effort / Characteristics Non-Labored Spontaneous Non-Labored Spontaneous Respiratory Depth Normal Normal Blood Pressure 157/93 H Blood Pressure [Right Arm] 164/100 H Blood Pressure Mean 114 Blood Pressure Mean [Right Arm] 121 Pulse Oximetry 96 94 94 Oxygen Delivery Method Room Air Room Air Room Air Sepsis Recent Fever Within 48 Hours No Sepsis New/Unexplained Change in Mental Status No Sepsis Action Taken by Nursing No Action Required 05/26/24 23:59 05/27/24 00:01 05/27/24 01:30 Temperature Temperature Source Pulse Rate 80 Pulse Rate [Apical] 77 Respiratory Rate 18 Respiratory Effort / Characteristics Respiratory Depth Blood Pressure Blood Pressure [Right Arm] 135/95 Blood Pressure Mean Blood Pressure Mean [Right Arm] 108 Pulse Oximetry 94 92 Oxygen Delivery Method Room Air Room Air Sepsis Recent Fever Within 48 Hours Sepsis New/Unexplained Change in Mental Status Sepsis Action Taken by Snf Medications Current Medication List: was personally reviewed by me Laboratory Data Attestation: I reviewed the patient's lab results. 05/26/24 23:58 05/26/24 23:58 Lab Results 05/26/24 Range/Units 23:58 WBC 8.83 (4.8-10.8) K/ul RBC 5.42 (4.70-6.10) M/uL Hgb 16.6 (14.0-18.0) g/dl Hct 51.2 (42.0-52.0) % MCV 94.5 (80.0-100.0) fL MCH 30.6 (25.0-34.0) pg MCHC 32.4 (32.0-36.0) g/dL RDW Std Deviation 45.5 (36.4-46.3) fL RDW Coeff of [place] 13.2 (11.5-14.5) % Plt Count 209 (130-400) K/uL MPV 11.6 (9.4-12.4) fL Immature Gran % (Auto) 0.2 % Neut % (Auto) 59.0 % Lymph % (Auto) 26.3 % [place] % (Auto) 10.9 % Eos % (Auto) 3.3 % Baso % (Auto) 0.3 % Neut # (Auto) 5.21 (1.40-6.50) K/uL Lymph # (Auto) 2.32 (1.20-3.40) K/uL [place] # (Auto) 0.96 H (0.11-0.59) K/uL Eos # (Auto) 0.29 (0.00-0.50) K/uL Baso # (Auto) 0.03 (0.00-0.20) K/uL Immature Gran # (Auto) 0.02 (0.01-0.20) K/uL Sodium 139 (136-145) mmol/L Potassium 3.9 (3.5-5.1) mmol/L Chloride 106 (98-107) mmol/L Carbon Dioxide 25 (21-32) mmol/L Anion Gap 8 (3-11) BUN 12 (6-23) mg/dl Creatinine 0.88 (0.6-1.4) mg/dl Est Cr Clr Drug Dosing 107.1 ml/min eGFR 99.05 BUN/Creatinine Ratio 13.6 (10-20) Glucose 132 H (70-99(Fasting)) mg/dl Calcium 9.4 (8.6-10.3) mg/dl Total Bilirubin 0.7 (0.2-1.0) mg/dl AST 61 H (13-39) U/L ALT 71 H (7-52) U/L Alkaline Phosphatase 92 (34-104) U/L Troponin I High Sens 3.7 (0-20) pg/ml Total Protein 7.5 (6.0-8.3) gm/dl Albumin 4.3 (3.4-5.0) gm/dl Globulin 3.2 (2.5-4.0) gm/dl Albumin/Globulin Ratio 1.3 (0.9-2) Lipase 40 (11-82) U/L Administered Medications Discontinued Medications Aspirin (Aspirin Chew 324 Mg) 243 mg PO NOW STA Stop: 05/26/24 23:59 Last Admin: 05/27/24 00:03 Dose: 243 mg Documented By: FRAN Imaging Data Radiologist's Impression: Chest X-Ray 05/26/24 23:58 EXAM: XR chest 1V portable CLINICAL HISTORY: CHEST PAIN SDM TECHNIQUE: An X-ray image of the chest is obtained in AP projection. COMPARISON: No prior studies are available for comparison. FINDINGS: Pulmonary Parenchyma: Chest leads are seen. Possible infiltrates in the left lower zone. No evidence of infiltrates in right lung. No pulmonary nodules are identified. No evidence of pleural effusion or pleural thickening. Heart and Mediastinum: Heart size appears mildly enlarged however this is AP projection. No mediastinal widening or masses. Both markos and perihilar region appear prominent, likely due to vascular congestion, however faint nodular opacities are also identified in bilateral markos. Bony Thorax: Bony thorax appears intact without fractures or deformities. Degenerative changes seen in the visualized spine. Soft Tissues: Soft tissues overlying the chest wall are unremarkable. IMPRESSION: 1. Possible infiltrates in the left lower zone. Please correlate clinically for the possibility of pulmonary infection. 2. Bilateral hilar vascular congestion, with the possibility of lymph nodes. 3. Mild cardiomegaly however this is AP projection. Electronically signed by Stuart Martin 05-27-2024 01:42 AM Discharge Plan Visit Data Chief Complaint: Chest Pain Stated Complaint: CHEST PAIN ED Provider: Blu Ordaz Discharge Problem: Chest pain, exertional, Chronic asthma, History of AR (myocardial infarction), Hypertension Discharge Instructions Interventions: ED Discharge Assessment Last Done: 05/27/24 04:48 Discharge Problem: Chronic asthma Qualifiers: Asthma severity: mild Asthma persistence: intermittent Asthma complication type: uncomplicated Qualified Code(s): J45.20 - Mild intermittent asthma, uncomplicated Hypertension Qualifiers: Hypertension type: unspecified Qualified Code(s): I10 - Essential (primary) hypertension
[2024-05-27] MEDS: ASPIRIN CHEW 324 MG PO STA (00:03)
[2024-05-27 00:26] LABS: Albumin Globulin Ratio 1.3 (0.9-2); Albumin Level 4.3 gm/dl (3.4-5.0); BUN Creatinine Ratio 13.6 (10-20); Bilirubin,Total 0.7 mg/dl (0.2-1.0); Calcium 9.4 mg/dl (8.6-10.3); Creatinine Clr Calc Pharmacy 107.1 ml/min; Globulin 3.2 gm/dl (2.5-4.0); Potassium 3.9 mmol/L (3.5-5.1); Total Protein 7.5 gm/dl (6.0-8.3)
[2024-05-27 00:33] LABS: Troponin I High Sensitivity 3.7 pg/ml (0-20)
[2024-05-27 00:41] LABS: Basophils # (auto) 0.03 K/uL (0.00-0.20); Basophils % (auto) 0.3 %; Eosinophils # (auto) 0.29 K/uL (0.00-0.50); Eosinophils % (auto) 3.3 %; Hematocrit (blood only) 51.2 % (42.0-52.0); Hemoglobin 16.6 g/dl (14.0-18.0); Immature Granulocytes # (auto) 0.02 K/uL (0.01-0.20); Immature Granulocytes % (auto) 0.2 %; Lymphocytes # (auto) 2.32 K/uL (1.20-3.40); Lymphocytes % (auto) 26.3 %; Mean Corpuscular Hemoglobin 30.6 pg (25.0-34.0); Mean Corpuscular Hgb Conc 32.4 g/dL (32.0-36.0); Mean Corpuscular Volume 94.5 fL (80.0-100.0); Mean Platelet Volume 11.6 fL (9.4-12.4); Monocytes # (auto) 0.96 K/uL (0.11-0.59); Monocytes % (auto) 10.9 %; Neutrophils # (auto) 5.21 K/uL (1.40-6.50); Platelet Count 209 K/uL (130-400); RDW Coefficient of Variation 13.2 % (11.5-14.5); RDW Standard Deviation 45.5 fL (36.4-46.3); Red Blood Count 5.42 M/uL (4.70-6.10); White Blood Count 8.83 K/ul (4.8-10.8)
--- NOTE | 2024-05-27 01:43 | XRay Report ---
EXAM: XR chest 1V portable CLINICAL HISTORY: CHEST PAIN SDM TECHNIQUE: An X-ray image of the chest is obtained in AP projection. COMPARISON: No prior studies are available for comparison. FINDINGS: Pulmonary Parenchyma: Chest leads are seen. Possible infiltrates in the left lower zone. No evidence of infiltrates in right lung. No pulmonary nodules are identified. No evidence of pleural effusion or pleural thickening. Heart and Mediastinum: Heart size appears mildly enlarged however this is AP projection. No mediastinal widening or masses. Both markos and perihilar region appear prominent, likely due to vascular congestion, however faint nodular opacities are also identified in bilateral markos. Bony Thorax: Bony thorax appears intact without fractures or deformities. Degenerative changes seen in the visualized spine. Soft Tissues: Soft tissues overlying the chest wall are unremarkable. IMPRESSION: 1. Possible infiltrates in the left lower zone. Please correlate clinically for the possibility of pulmonary infection. 2. Bilateral hilar vascular congestion, with the possibility of lymph nodes. 3. Mild cardiomegaly however this is AP projection. Electronically signed by Stuart Martin 05-27-2024 01:42 AM
--- NOTE | 2024-05-27 02:07 | History & Physical Report ---
Date of Service May 27, 2024 Assessment & Plan (1) Atypical chest pain: (2) Chronic asthma: (3) Dyslipidemia: (4) Benign essential hypertension: (5) History of MT (myocardial infarction): Plan The patient is a 59-year-old male with past medical history including diabetes mellitus type 2, COPD, hyperlipidemia, hypertension, GERD and glaucoma. The patient presents to the emergency department with about 36 hours of parasternal left-sided chest discomfort, that began upon awakening the morning of 05/25. He reports a similar episode of discomfort a number of years ago,, did have a cardia catheterization done which was negative at that time. He denies any associated shortness of breath, dyspnea on exertion, signs of respiratory infection such as cough. He denies any radiation to arms or neck. He presented to emergency department this evening due to concerns regarding persistence of symptoms. #Atypical chest pain- Patient with 36 hours of intermittent left-sided chest discomfort without radiation, unassociated with dyspnea on exertion or shortness of breath History of MT with negative cardiac catheterization about 10 years ago Initial troponin normal at 3.7 with follow-up pending The patient will be admitted to telemetry for serial cardiac enzymes, serial EKG's, cardiac rhythm monitoring and a 2-D echocardiogram with Dopplers. EKG with normal sinus rhythm at [address]-T changes Patient will need a stress echocardiogram prior to discharge History of tobacco use Continue aspirin 81 mg daily, lisinopril 2.5 mg daily, metoprolol tartrate 25 mg every morning Chronic asthma/COPD/history tobacco use- Continue routine inhalers and montelukast Diabetes mellitus- Hold metformin patient Accu-Cheks with NovoLog SSI Check hemoglobin A1c Chronic medical issues Hyperlipidemia-Continue atorvastatin fish oil, and Zetia .Check a fasting lipid panel GERD-Continue omeprazole /pantoprazole Obesity-weight reduction program encouraged Glaucoma-continue travoprost History of Present Illness Chief Complaint: The patient presents to the emergency department with about 36 hours of parasternal left-sided chest discomfort, that began upon awakening the morning of 05/25. He reports a similar episode of discomfort a number of years ago,, did have a cardia catheterization done which was negative at that time. He denies any associated shortness of breath, dyspnea on exertion, signs of respiratory infection such as cough. He denies any radiation to arms or neck. He presented to emergency department this evening due to concerns regarding persistence of symptoms. Primary Care Provider: Pete Lewis, ELVIS, MARII The patient is a 59-year-old male with past medical history including diabetes mellitus type 2, COPD, hyperlipidemia, hypertension, GERD and glaucoma. The patient presents to the emergency department with about 36 hours of parasternal left-sided chest discomfort, that began upon awakening the morning of 05/25. He reports a similar episode of discomfort a number of years ago,, did have a cardia catheterization done which was negative at that time. He denies any associated shortness of breath, dyspnea on exertion, signs of respiratory infection such as cough. He denies any radiation to arms or neck. He presented to emergency department this evening due to concerns regarding persistence of symptoms short Allergies Allergy/AdvReac Type Severity Reaction Status Date / Time No Known Drug Allergies Allergy Verified 04/12/24 11:10 Home Medications Medication Instructions Recorded Confirmed Type omega 9-pjc-ryy-fish oil 1,000 mg 1 cap PO DAILY 08/19/22 05/26/24 History (120 mg-180 mg) capsule (Fish Oil) metformin 500 mg tablet 500 mg PO BID #180 tabs 05/12/23 05/26/24 Rx omeprazole magnesium 20 mg 20 mg PO DAILY #90 tabs 10/20/23 05/26/24 Rx tablet,delayed release (Prilosec OTC) albuterol sulfate 90 mcg/actuation See Rx Instructions inhalation 04/11/24 05/26/24 Rx aerosol inhaler (Ventolin HFA) .COMPLEX PRN shortness of breath or wheezing #8.5 grams aspirin 81 mg tablet,delayed 81 mg PO DAILY 05/26/24 05/26/24 History release atorvastatin 80 mg tablet 80 mg PO DAILY 05/26/24 05/26/24 History ezetimibe 10 mg tablet 10 mg PO DAILY 05/26/24 05/26/24 History lisinopril 2.5 mg tablet 2.5 mg PO DAILY 05/26/24 05/26/24 History metoprolol tartrate 25 mg tablet 25 mg PO QAM 05/26/24 05/26/24 History montelukast 10 mg tablet 10 mg PO QAM 05/26/24 05/26/24 History travoprost 0.004 % eye drops 1 drp ophthalmic (eye) QPM 05/26/24 05/26/24 History Past Med/Surg History Problem List (Updated 05/27/24 @ 03:52 by Kevin Mckeon MD) History of cardiac cath 2009 NO STENTS NEEDED-NO ISSUES SINCE History of MT (myocardial infarction) Atypical chest pain Diabetes mellitus Chronic asthma (Chronic) Dyslipidemia (Chronic) Benign essential hypertension (Chronic) Chronic gastroesophageal reflux disease (Chronic 12/06/10) Medical History (Updated 05/27/24 @ 03:52 by Kevin Mckeon MD) Diabetes mellitus type 2 in nonobese Former smoker GERD (gastroesophageal reflux disease) Asthma USES INHALERS INFREQUENTLY Myocardial Infarction 2009-CARDIAC CATH NO STENTS REQUIRED Hyperlipidemia TAKEN OFF MED Surgical History (Updated 05/27/24 @ 03:52 by Kevin Mckeon MD) History of open reduction and internal fixation (ORIF) procedure RT WRIST X 2 Family History Mother Breast cancer Father Myocardial infarction Stroke Uncle Myocardial infarction Cerebral atherosclerosis Grandmother (Maternal) Liver cancer Denies family history of Ovarian cancer Prostate cancer Colorectal cancer Social History Smoking Status: Former smoker Second Hand Exposure: No; Do You Dip or Chew Tobacco: No (QUIT 12 YRS AGO); Hx Alcohol Use: No Hx Substance Use: No Preferred Language: Thai Communication Ability: Effective Visual Impairment: No Limitations Hearing Ability: Normal Reproduction Machine Loader Required: No Beliefs That Will Affect Care: None marital status: Current Living Situation: Spouse current occupational status: employed current occupation: [employer] Feels Safe at Home: Yes Childhood Exposure to Second-Hand Smoke: Yes Dental Care, Regularly: No Physical Activity Frequency: 1-2 Times per Week Seatbelt Use: sometimes Sunscreen Use: No Assistive Devices: Denture - Upper, Denture - Lower and Glasses Review of Systems Review of Systems: The patient denies palpitations, shortness of breath, dyspnea on exertion, c ough, lower extremity swelling, sore throat, fevers, chills, sweats, weight change, fatigue, nausea, vomiting, diarrhea , constipation, abdominal pain, pelvic pain, blood in urine or stool, dysuria, urinary frequency or urgency, lightheadedness, dizziness, headache, memory loss, loss of consciousness, rash, abnormal bruising or bleeding, imbalance, focal or generalized weakness, numbness or tingling in arms or legs, generalized arthralgias or myalgias, back or neck pain, or night sweats. The review of systems is otherwise negative other than for that already noted above, and at least 10 systems have been reviewed. Physical Exam Physical Exam: The patient is awake, alert and oriented 3, well developed and well nourished, normocephalic and atraumatic, lying in bed and in no acute distress. HEENT--PERRL, EOMI, mucous membranes and oropharynx dry. Neck--supple. No JVD. No bruits. Thyroid normal, trachea midline, no adenopathy. Heart--normal S1 and S2. No murmurs, rubs or gallops. Lungs--clear bilaterally, but decreased breath sounds throughout. No respiratory distress, no accessory muscle use. Abdomen--normal bowel sounds and soft. Nontender. Nondistended. Mildly tympanitic Extremities--no cyanosis or clubbing. No edema. Dermatologic--normal skin turgor, normal color, no abnormal lymph nodes, no rash. Neurologic--cranial nerves II through XII grossly intact. Rheumatologic--normal range of motion. Psychiatric--normal affect. Results & Data Results & Data Vital Signs (Past 12 Hours) Vital Signs Temp Pulse Pulse Resp BP BP Pulse Ox 05/27/24 01:30 77 18 135/95 92 05/27/24 00:01 80 05/26/24 23:59 94 05/26/24 23:55 85 19 164/100 H 94 05/26/24 23:55 94 05/26/24 23:43 36.3 C L 83 18 157/93 H 96 O2 Del Method 05/27/24 01:30 Room Air 05/27/24 00:01 05/26/24 23:59 Room Air 05/26/24 23:55 Room Air 05/26/24 23:55 Room Air 05/26/24 23:43 Room Air Laboratory Results Laboratory Results WBC 8.83 K/ul (4.8-10.8) 05/26/24 23:58 RBC 5.42 M/uL (4.70-6.10) 05/26/24 23:58 Hgb 16.6 g/dl (14.0-18.0) 05/26/24 23:58 Hct 51.2 % (42.0-52.0) 05/26/24 23:58 MCV 94.5 fL (80.0-100.0) 05/26/24 23:58 MCH 30.6 pg (25.0-34.0) 05/26/24 23:58 MCHC 32.4 g/dL (32.0-36.0) 05/26/24 23:58 RDW Std Deviation 45.5 fL (36.4-46.3) 05/26/24 23:58 RDW Coeff of Aranza 13.2 % (11.5-14.5) 05/26/24 23:58 Plt Count 209 K/uL (130-400) 05/26/24 23:58 MPV 11.6 fL (9.4-12.4) 05/26/24 23:58 Immature Gran % (Auto) 0.2 % 05/26/24 23:58 Neut % (Auto) 59.0 % 05/26/24 23:58 Lymph % (Auto) 26.3 % 05/26/24 23:58 Rice % (Auto) 10.9 % 05/26/24 23:58 Eos % (Auto) 3.3 % 05/26/24 23:58 Baso % (Auto) 0.3 % 05/26/24 23:58 Neut # (Auto) 5.21 K/uL (1.40-6.50) 05/26/24 23:58 Lymph # (Auto) 2.32 K/uL (1.20-3.40) 05/26/24 23:58 Rice # (Auto) 0.96 K/uL (0.11-0.59) H 05/26/24 23:58 Eos # (Auto) 0.29 K/uL (0.00-0.50) 05/26/24 23:58 Baso # (Auto) 0.03 K/uL (0.00-0.20) 05/26/24 23:58 Immature Gran # (Auto) 0.02 K/uL (0.01-0.20) 05/26/24 23:58 Sodium 139 mmol/L (136-145) 05/26/24 23:58 Potassium 3.9 mmol/L (3.5-5.1) 05/26/24 23:58 Chloride 106 mmol/L (98-107) 05/26/24 23:58 Carbon Dioxide 25 mmol/L (21-32) 05/26/24 23:58 Anion Gap 8 (3-11) 05/26/24 23:58 BUN 12 mg/dl (6-23) 05/26/24 23:58 Creatinine 0.88 mg/dl (0.6-1.4) 05/26/24 23:58 Est Cr Clr Drug Dosing 107.1 ml/min 05/26/24 23:58 eGFR 99.05 05/26/24 23:58 BUN/Creatinine Ratio 13.6 (10-20) 05/26/24 23:58 Glucose 132 mg/dl (70-99(Fasting)) H 05/26/24 23:58 Calcium 9.4 mg/dl (8.6-10.3) 05/26/24 23:58 Total Bilirubin 0.7 mg/dl (0.2-1.0) 05/26/24 23:58 AST 61 U/L (13-39) H 05/26/24 23:58 ALT 71 U/L (7-52) H 05/26/24 23:58 Alkaline Phosphatase 92 U/L (34-104) 05/26/24 23:58 Troponin I High Sens 3.7 pg/ml (0-20) 05/26/24 23:58 Total Protein 7.5 gm/dl (6.0-8.3) 05/26/24 23:58 Albumin 4.3 gm/dl (3.4-5.0) 05/26/24 23:58 Globulin 3.2 gm/dl (2.5-4.0) 05/26/24 23:58 Albumin/Globulin Ratio 1.3 (0.9-2) 05/26/24 23:58 Lipase 40 U/L (11-82) 05/26/24 23:58 Impressions Chest X-Ray 05/26/24 23:58 EXAM: XR chest 1V portable CLINICAL HISTORY: CHEST PAIN SDM TECHNIQUE: An X-ray image of the chest is obtained in AP projection. COMPARISON: No prior studies are available for comparison. FINDINGS: Pulmonary Parenchyma: Chest leads are seen. Possible infiltrates in the left lower zone. No evidence of infiltrates in right lung. No pulmonary nodules are identified. No evidence of pleural effusion or pleural thickening. Heart and Mediastinum: Heart size appears mildly enlarged however this is AP projection. No mediastinal widening or masses. Both markos and perihilar region appear prominent, likely due to vascular congestion, however faint nodular opacities are also identified in bilateral markos. Bony Thorax: Bony thorax appears intact without fractures or deformities. Degenerative changes seen in the visualized spine. Soft Tissues: Soft tissues overlying the chest wall are unremarkable. IMPRESSION: 1. Possible infiltrates in the left lower zone. Please correlate clinically for the possibility of pulmonary infection. 2. Bilateral hilar vascular congestion, with the possibility of lymph nodes. 3. Mild cardiomegaly however this is AP projection. Electronically signed by Stuart Martin 05-27-2024 01:42 AM Thank Code Status & VTE Plan Code Status Full code VTE Prophylaxis Plan VTE Prophylaxis will be ordered: Yes PG Care Time/CCT Total # of Minutes Spent Total Time Spent with Patient: Total time spent is greater than 50% in coordination of care (as documented) at patient's floor/unit and/or counseling patient: Coding Level of Care Code 32999 INT INP/OBS CARE 3/75MIN Diagnoses Atypical chest pain R07.89 Mild intermittent chronic asthma without complication J45.20 Asthma severity: mild Asthma persistence: intermittent Asthma complication type: uncomplicated Dyslipidemia E78.5 Benign essential hypertension I10 History of MT (myocardial infarction) I25.2 (2) Chronic asthma Asthma severity: mild Asthma persistence: intermittent Asthma complication type: uncomplicated Qualified Code(s): J45.20 - Mild intermittent asthma, uncomplicated
[2024-05-27] MEDS ORDERED: ALBUTEROL HFA 8 GM INHALER INH PRN (04:48)
[2024-05-27] MEDS ORDERED: GLUCOSE 40% GEL 15 GM TUBE PO PRN (04:48)
[2024-05-27] MEDS ORDERED: CARBOHYDRATES FOR HYPOGLYCEMIA PO PRN (04:48)
[2024-05-27] MEDS ORDERED: GLUCAGON FOR INJ 1 MG VIAL SQ PRN (04:48)
[2024-05-27] MEDS ORDERED: GLUCOSE 10 TAB/TUBE PO PRN (04:48)
[2024-05-27] MEDS ORDERED: ONDANSETRON INJ 2 MG/ML 2 ML VIAL IV PRN (04:48)
[2024-05-27] MEDS ORDERED: DEXTROSE 50% 50 ML SYRINGE IV PRN (04:48)
[2024-05-27] MEDS: INSULIN ASPART PER UNIT CHARGE SC SCH (09:08)
[2024-05-27] MEDS: OMEGA-3 (PURIFIED FISH OIL) 1 GM CAP PO SCH (10:14)
[2024-05-27] MEDS: PANTOprazole 40 MG TAB PO SCH (10:14)
[2024-05-27] MEDS: EZETIMIBE 10 MG TAB PO SCH (10:14)
[2024-05-27] MEDS: METOPROLOL TARTRATE 25 MG TAB PO SCH (10:14)
[2024-05-27] MEDS: MONTELUKAST SODIUM 10 MG TABLET PO SCH (10:14)
[2024-05-27] MEDS: ATORVASTATIN 40 MG TAB PO SCH (10:14)
[2024-05-27] MEDS: lisinopril 2.5 MG TAB PO SCH (10:14)
[2024-05-27] MEDS: ASPIRIN 81 MG ECTAB PO SCH (10:15)
[2024-05-27 11:17] LABS: Albumin Globulin Ratio 1.5 (0.9-2); Albumin Level 4.2 gm/dl (3.4-5.0); BUN Creatinine Ratio 15.3 (10-20); Bilirubin,Total 0.8 mg/dl (0.2-1.0); Calcium 9.4 mg/dl (8.6-10.3); Creatinine Clr Calc Pharmacy 110.7 ml/min; Globulin 2.8 gm/dl (2.5-4.0); Potassium 3.7 mmol/L (3.5-5.1)
[2024-05-27 11:21] LABS: Troponin I High Sensitivity 3.3 pg/ml (0-20)
--- NOTE | 2024-05-27 16:40 | XCELERA ---
[id number]
--- NOTE | 2024-05-27 18:26 | Electrocardiogram Report ---
Test Reason : Blood Pressure : */* mmHG Vent. Rate : 75 BPM Atrial Rate : 75 BPM P-R Int : 152 ms QRS Dur : 98 ms QT Int : 378 ms P-R-T Axes : 41 43 60 degrees QTcB Int : 422 ms Normal sinus rhythm Normal ECG When compared with ECG of 04-Sep-2017 15:59, No significant change Confirmed by Aquiles Briscoe ([id number]) on 05/27/2024 6:25:39 PM Referred By: REFERRED SELF Confirmed By: Aquiles Briscoe
--- NOTE | 2024-05-27 18:57 | Hospitalist Progress Note ---
Date of Service May 27, 2024 Assessment & Plan (1) Atypical chest pain: (2) Chronic asthma: (3) Dyslipidemia: (4) Benign essential hypertension: (5) History of MS (myocardial infarction): Plan The patient is a 59-year-old male with past medical history including diabetes mellitus type 2, COPD, hyperlipidemia, hypertension, GERD and glaucoma. The patient presents to the emergency department with about 36 hours of parasternal left-sided chest discomfort, that began upon awakening the morning of 05/25. He reports a similar episode of discomfort a number of years ago,, did have a cardia catheterization done which was negative at that time. He denies any associated shortness of breath, dyspnea on exertion, signs of respiratory infection such as cough. He denies any radiation to arms or neck. He presented to emergency department this evening due to concerns regarding persistence of symptoms. #Atypical chest pain- Patient with 36 hours of intermittent left-sided chest discomfort without radiation, unassociated with dyspnea on exertion or shortness of breath History of MS with negative cardiac catheterization about 10 years ago trop negative x2 stress echo negative. CXR with concerns for possible LLL PNA - repeat 2V CXR ordered - will start empiric ceftriaxone and azithromycin. QTC okay. Continue aspirin 81 mg daily, lisinopril 2.5 mg daily, metoprolol tartrate 25 mg every morning #Chronic asthma/COPD/history tobacco use- Continue routine inhalers and montelukast #Diabetes mellitus- Hold metformin patient Accu-Cheks with NovoLog SSI A1c 04/2024 - 6.6 Chronic medical issues Hyperlipidemia-Continue atorvastatin fish oil, and Zetia . GERD-Continue omeprazole /pantoprazole Obesity-weight reduction program encouraged Glaucoma-continue travoprost dispo - continued inpatient stay for further investigation of chest pain Admission and Anticipated Discharge Date Admission Date: May 27, 2024 Supervising Physician Co-Signing Physician Notes PA Supervision Note: I did not personally see or examine the patient today, but I verified all valente points of ABHAY Luna's assessment and plan with the following exceptions/additions: None Subjective chest pain with activity since Thursday. no associated SOB no change in activity no gerd symptoms has not smoked in 14 years no CP at rest Tele - SR Review of Systems Review of Systems: All systems reviewed & are unremarkable except as noted in Subjective Physical Exam Physical Exam: General: NAD, VS as above Resp: normal respiratory effort, lungs clear to auscultation CV: RRR, no murmur, Abd: normal bowel sounds, non tender Extremities: Moves all extremities, no edema Neuro: A&O x3, Skin: intact, no lesions noted Results & Data Results & Data Vital Signs (Past 12 Hours) Vital Signs Temp Pulse Pulse Resp BP BP Pulse Ox 05/27/24 14:54 73 16 131/81 91 05/27/24 10:51 97.3 F L 73 18 152/90 H 94 05/27/24 09:30 78 05/27/24 09:30 05/27/24 09:25 97.5 F L 71 16 156/94 H 95 05/27/24 09:00 71 16 127/84 94 05/27/24 06:54 68 O2 Del Method O2 Flow Rate 05/27/24 14:54 Room Air 05/27/24 10:51 Room Air 05/27/24 09:30 05/27/24 09:30 Room Air 05/27/24 09:25 Room Air 05/27/24 09:00 Nasal Cannula 2 05/27/24 06:54 Laboratory Results cbc, chemistry and trop reviewed PG Care Time/CCT Total # of Minutes Spent Total Time Spent with Patient: Total time spent is greater than 50% in coordination of care (as documented) at patient's floor/unit and/or counseling patient: Coding Level of Care Code None Diagnoses Atypical chest pain R07.89 Mild intermittent chronic asthma without complication J45.20 Asthma complication type: uncomplicated Asthma persistence: intermittent Asthma severity: mild Dyslipidemia E78.5 Benign essential hypertension I10 History of MS (myocardial infarction) I25.2 (2) Chronic asthma Asthma complication type: uncomplicated Asthma persistence: intermittent Asthma severity: mild Qualified Code(s): J45.20 - Mild intermittent asthma, uncomplicated
[2024-05-27] MEDS ORDERED: cefTRIAXone SODIUM 1,000 MG/50 ML BAG IV SCH (19:00)
--- NOTE | 2024-05-27 20:02 | XRay Report ---
Exam(s): XR CXR 2 VIEWS EXAM: XR Chest, 2 Views CLINICAL HISTORY: Reason for exam: recheck poss PNA, CP. TECHNIQUE: Frontal and lateral views of the chest. COMPARISON: 05/27/24 FINDINGS: Lungs: Unremarkable. No consolidation. Pleural space: Unremarkable. No pleural effusion or pneumothorax. Heart: Unremarkable. No cardiomegaly or pulmonary vascular congestion. Bones/joints: No acute fracture. No dislocation. IMPRESSION: No evidence of acute cardiopulmonary disease. Electronically signed by: Annabel Mcgee M.D. 05/27/24 20:01 PM
[2024-05-27] MEDS: AZITHROMYCIN 250 MG TAB PO SCH (20:46)
[2024-05-27] MEDS: TRAVOPROST Z 0.004% OPH SOLN 2.5 ML BTL OP SCH (20:46)
[2024-05-27] MEDS: cefTRIAXone SODIUM 2,000 MG/50 ML BAG IV SCH (20:46)
[2024-05-27 23:37] VITALS: RESP 16
[2024-05-28 06:23] LABS: Basophils # (auto) 0.03 K/uL (0.00-0.20); Basophils % (auto) 0.3 %; Eosinophils # (auto) 0.39 K/uL (0.00-0.50); Hematocrit (blood only) 48.2 % (42.0-52.0); Hemoglobin 16.5 g/dl (14.0-18.0); Immature Granulocytes # (auto) 0.02 K/uL (0.01-0.20); Immature Granulocytes % (auto) 0.2 %; Lymphocytes # (auto) 2.24 K/uL (1.20-3.40); Lymphocytes % (auto) 23.1 %; Mean Corpuscular Hemoglobin 31.7 pg (25.0-34.0); Mean Corpuscular Hgb Conc 34.2 g/dL (32.0-36.0); Mean Corpuscular Volume 92.5 fL (80.0-100.0); Mean Platelet Volume 11.2 fL (9.4-12.4); Monocytes # (auto) 1.15 K/uL (0.11-0.59); Monocytes % (auto) 11.9 %; Neutrophils # (auto) 5.85 K/uL (1.40-6.50); Neutrophils % (auto) 60.5 %; Platelet Count 207 K/uL (130-400); RDW Coefficient of Variation 13.2 % (11.5-14.5); Red Blood Count 5.21 M/uL (4.70-6.10); White Blood Count 9.68 K/ul (4.8-10.8)
[2024-05-28 06:45] LABS: Albumin Globulin Ratio 1.5 (0.9-2); Albumin Level 3.9 gm/dl (3.4-5.0); Bilirubin,Total 0.9 mg/dl (0.2-1.0); Creatinine Clr Calc Pharmacy 105.8 ml/min; Globulin 2.6 gm/dl (2.5-4.0); Potassium 4.1 mmol/L (3.5-5.1); Total Protein 6.5 gm/dl (6.0-8.3)
[2024-05-28 07:35] VITALS: BP 147/85; PULSE 76; TEMP 97.5; O2SAT 95
[2024-05-28 10:29] LABS: D Dimer 280 ug/L FEU (0-500)
--- NOTE | 2024-05-28 10:53 | Discharge Summary ---
Discharge Summary Date of Service May 28, 2024 Principal Dx & Hospital Course #1 = Principal Diagnosis (1) Atypical chest pain: (2) Chronic asthma: (3) Dyslipidemia: (4) Benign essential hypertension: (5) History of OK (myocardial infarction): Plan The patient is a 59-year-old male with past medical history including diabetes mellitus type 2, COPD, hyperlipidemia, hypertension, GERD and glaucoma. The patient presents to the emergency department with about 36 hours of parasternal left-sided chest discomfort, that began upon awakening the morning of 05/25. He reports a similar episode of discomfort a number of years ago,, did have a cardia catheterization done which was negative at that time. He denies any associated shortness of breath, dyspnea on exertion, signs of respiratory infection such as cough. He denies any radiation to arms or neck. He presented to emergency department due to concerns regarding persistence of symptoms. #Atypical chest pain- Patient with 36 hours of intermittent left-sided chest discomfort without radiation, unassociated with dyspnea on exertion or shortness of breath. History of OK with negative cardiac catheterization about 10 years ago trop negative x2. stress echo negative. two-view chest x-ray without signs of pneumonia. D-dimer negative. - thorough workup without cause of chest pain, chest pain has not recurred while patient has been in the hospital. It is possible there is a musculoskeletal component to the chest pain as it occurred while he was lifting heavy objects. Discussed return precautions at this point patient is stable to discharge to home. No medication changes - continue aspirin 81 mg daily, lisinopril 2.5 mg daily, metoprolol tartrate 25 mg every morning #Chronic asthma/COPD/history tobacco use- Continue routine inhalers and montelukast #Diabetes mellitus- A1c 04/2024 - 6.6. resume metformin on discharge # elevated LFTs Mild elevations but stable and chronic. Suspect fatty liver, could consider outpatient right upper quadrant ultrasound #Nocturnal hypoxia Had 1 episode of dropping down to 88% on room air while sleeping, patient is unsure if he snores. Has never had a sleep study. Could consider outpatient sleep study Chronic medical issues Hyperlipidemia-Continue atorvastatin fish oil, and Zetia . GERD-Continue omeprazole /pantoprazole Obesity-weight reduction program encouraged Glaucoma-continue travoprost dispo - discharge to home today Family updated at bedside 05/27 and 05/28 Notes For Next Care Provider consider outpatient sleep study for possible sleep apnea Consider right upper quadrant ultrasound for continued evaluation of elevated LFTs Medication Changes From Visit none Admission HPI Per Admitting Provider The patient is a 59-year-old male with past medical history including diabetes mellitus type 2, COPD, hyperlipidemia, hypertension, GERD and glaucoma. The patient presents to the emergency department with about 36 hours of parasternal left-sided chest discomfort, that began upon awakening the morning of 05/25. He reports a similar episode of discomfort a number of years ago,, did have a cardia catheterization done which was negative at that time. He denies any associated shortness of breath, dyspnea on exertion, signs of respiratory infection such as cough. He denies any radiation to arms or neck. He presented to emergency department this evening due to concerns regarding persistence of symptoms short Discharge Exam General: NAD, VS as above Resp: normal respiratory effort, lungs clear to auscultation CV: RRR, no murmur, chest wall nontender to palpation. Abd: normal bowel sounds, non tender Extremities: Moves all extremities, Trace edema Neuro: A&O x3, Skin: intact, no lesions noted Discharge Plan Discharge Items Patient Disposition: Home - Self-Care Reason For Visit: ATYPICAL CHEST PAIN Discharge Diagnosis: Atypical chest pain Activity: Resume your previous activity Weightbearing: Full weightbearing Non-emergency contact: Primary Care Provider Call non-emergency contact if: you have any medication questions, your symptoms worsen, your pain is not controlled, your pain is worsening, your pain is unusual for you, your pain is concerning for you and your temperature is above 101 Follow-up/Referrals: Pete Lewis III, CRNP [Primary Care Provider] - Diet: Heart Healthy Addtl Attending Provider Instructions: Mr. Shell, You were hospitalized after having episodes of atypical chest pain. Thankfully, this has not recurred while you were in the hospital. You had a workup that had a negative stress echocardiogram, chest xray without pneumonia and d-dimer that ruled out PE (blood clot in lung). There is a possibility that this pain was muscular in nature caused from your heavy lifting. You should follow up with your PCP regarding the mild elevation of liver enzymes, agree with diet and exercise, but a RUQ ultrasound may also be benefical. You had a drop in your oxygen while sleeping and should consider a sleep study outpatient. Please return to the ER if you have any worsening chest pain, pain that radiates down the left arm or up to the jaw, shortness of breath. You should see your PCP in one week for follow up. CONTACT YOUR PRIMARY CARE PROVIDER if you experience any of the following: Shortness of breath or difficulty breathing Fevers or chills Feeling tired with normal activity or experiencing dizziness or fainting Difficulty following your treatment plan, or difficulty taking medications CALL 911 OR GO TO THE EMERGENCY DEPARTMENT if you experience any of the following: Severe abdominal pain or nausea/vomiting Severe chest pain, or chest pain that radiates (moves) to your jaw or arm Sudden, severe shortness of breath or difficulty breathing Thank you for allowing us to participate in your care. Pending Studies at Discharge: No Stand-Alone Forms: My [facility] [place], Smoking Cessation Medications and DC Order Prescriptions: Continued metformin 500 mg tablet 500 mg PO BID Qty: 180 3RF albuterol sulfate [Ventolin HFA] 90 mcg/actuation HFA aerosol inhaler See Rx Instructions INH .COMPLEX PRN (Reason: shortness of breath or wheezing) Qty: 8.5 0RF Rx Instructions: 1-2 INH 4-6 PRN; omeprazole magnesium [Prilosec OTC] 20 mg tablet,delayed release (DR/EC) 20 mg PO DAILY Qty: 90 12RF omega 6-qoe-rro-fish oil [Fish Oil] 1,000 mg (120 mg-180 mg) capsule 1 cap PO DAILY aspirin 81 mg Tablet,Delayed Release (Dr/Ec) 81 mg PO DAILY lisinopril 2.5 mg tablet 2.5 mg PO DAILY atorvastatin 80 mg tablet 80 mg PO DAILY Rx Instructions: Take 1 tablet by mouth once daily ezetimibe 10 mg tablet 10 mg PO DAILY montelukast 10 mg tablet 10 mg PO QAM travoprost 0.004 % drops 1 drp ophthalmic (eye) QPM metoprolol tartrate 25 mg tablet 25 mg PO QAM Discharge Orders: Discharge Order (Routine); Ordered 05/28/24 Ordered By: Dunia Carrillo/Other Patient Handouts: Eating Heart-Healthy Foods Admission Data Admit Date/Time: 05/27/24 02:06 Attending Provider: Natasha Jimenez Admit Provider: Kevin Mckeon Primary Care Provider: Griel,Pete C. III Other Providers: Kevin Mckeon Other Interventions: Discharge Summary Assessment (RN) Last Done: 05/28/24 11:10 Hospital Stay Data Consultations 05/27/24 00:54 ED Decision to Admit Stat Diagnostic Imagining Performed Chest X-Ray 05/26/24 23:58 EXAM: XR chest 1V portable CLINICAL HISTORY: CHEST PAIN SDM TECHNIQUE: An X-ray image of the chest is obtained in AP projection. COMPARISON: No prior studies are available for comparison. FINDINGS: Pulmonary Parenchyma: Chest leads are seen. Possible infiltrates in the left lower zone. No evidence of infiltrates in right lung. No pulmonary nodules are identified. No evidence of pleural effusion or pleural thickening. Heart and Mediastinum: Heart size appears mildly enlarged however this is AP projection. No mediastinal widening or masses. Both markos and perihilar region appear prominent, likely due to vascular congestion, however faint nodular opacities are also identified in bilateral markos. Bony Thorax: Bony thorax appears intact without fractures or deformities. Degenerative changes seen in the visualized spine. Soft Tissues: Soft tissues overlying the chest wall are unremarkable. IMPRESSION: 1. Possible infiltrates in the left lower zone. Please correlate clinically for the possibility of pulmonary infection. 2. Bilateral hilar vascular congestion, with the possibility of lymph nodes. 3. Mild cardiomegaly however this is AP projection. Electronically signed by Stuart Martin 05-27-2024 01:42 AM Chest X-Ray 05/27/24 16:51 Exam(s): XR CXR 2 VIEWS EXAM: XR Chest, 2 Views CLINICAL HISTORY: Reason for exam: recheck poss PNA, CP. TECHNIQUE: Frontal and lateral views of the chest. COMPARISON: 05/27/24 FINDINGS: Lungs: Unremarkable. No consolidation. Pleural space: Unremarkable. No pleural effusion or pneumothorax. Heart: Unremarkable. No cardiomegaly or pulmonary vascular congestion. Bones/joints: No acute fracture. No dislocation. IMPRESSION: No evidence of acute cardiopulmonary disease. Electronically signed by: Annabel Mcgee M.D. 05/27/24 20:01 PM Pending Results Patient Have Any Pending Studies at Discharge: No Discharge Instructions Given to Patient (Per Discharging Provider) Mr. Shell, Reji were hospitalized after having episodes of atypical chest pain. Thankfully, this has not recurred while you were in the hospital. You had a workup that had a negative stress echocardiogram, chest xray without pneumonia and d-dimer that ruled out PE (blood clot in lung). There is a possibility that this pain was muscular in nature caused from your heavy lifting. You should follow up with your PCP regarding the mild elevation of liver enzymes, agree with diet and exercise, but a RUQ ultrasound may also be benefical. You had a drop in your oxygen while sleeping and should consider a sleep study outpatient. Please return to the ER if you have any worsening chest pain, pain that radiates down the left arm or up to the jaw, shortness of breath. You should see your PCP in one week for follow up. CONTACT YOUR PRIMARY CARE PROVIDER if you experience any of the following: Shortness of breath or difficulty breathing Fevers or chills Feeling tired with normal activity or experiencing dizziness or fainting Difficulty following your treatment plan, or difficulty taking medications CALL 911 OR GO TO THE EMERGENCY DEPARTMENT if you experience any of the following: Severe abdominal pain or nausea/vomiting Severe chest pain, or chest pain that radiates (moves) to your jaw or arm Sudden, severe shortness of breath or difficulty breathing Thank you for allowing us to participate in your care. Supervising Physician Co-Signing Physician Notes PA Supervision Note: I did not personally see or examine the patient today, but I verified all valente points of ABHAY Luna's assessment and plan with the following exceptions/additions: None Total Time Total Time Spent Total Time Spent (In Minutes): Time spent day of discharge 35 minutes including direct patient care, medication reconciliation, documentation, review of labs and images, and coordination of care. Coding Level of Care Code 49354 INP/OBS DISCH >30 MIN Diagnoses Atypical chest pain R07.89 Mild intermittent chronic asthma without complication J45.20 Asthma complication type: uncomplicated Asthma persistence: intermittent Asthma severity: mild Dyslipidemia E78.5 Benign essential hypertension I10 History of OK (myocardial infarction) I25.2
== END 2024-05-28 11:39 | disposition home or self-care (01) ==
LOC: SUATTDRO → EDINP 23:30 → ED 23:30 → SUATTDRO 05-27 02:06 → 4W 05-27 04:48